=== PATIENT | female | born 1935 | race African-American/Black ===

== ENCOUNTER 2018-01-21 17:49 | Inpatient (IN) | payer OTHER, MEDICAID ==
[~2018-01-21] VITALS: Ht 165.1 cm; Wt 81.2 kg
[~2018-01-21 17:49] MED LIST: ACET-2178 PO; CARB1TAB9 PO; CLON0.2T PO; CYM20 PO; FERROUS GLUCONATE PO; GUAIFENESIN 100 MG/5 ML PO; HYDR-523 PO; HYDR100T26 PO; MELA3TAB PO; METO-396 PO; MIR25 PO; VITAMIN B1 PO; XALAO EACHEYE
[2018-01-21 18:54] LABS: BG BASE EXCESS 0.8 mmol/L (-2.0-2.0); BG CARBOXYHEMOGLOBIN 0.7 % (0.5-1.5); BG DEOXYHEMOGLOBIN 4.1 % (0.0-5.0); BG FRACTION INSPIRED OXYGEN 28; BG HCO3 ACT 26.4 mmol/L (22.0-26.0); BG METHEMOGLOBIN 0.3 % (0.0-1.5); BG OXYGEN SATURATION 95.9 % (92.0-98.5); BG OXYHEMOGLOBIN 94.9 % (94.0-97.0); BG PCO2 47.5 mmHg (35.0-45.0); BG PH 7.363 (7.350-7.450); BG PO2 90.1 mmHg (75.0-100.0); BG SAMPLE SITE RIGHT RADIAL; BG TOTAL HEMOGLOBIN 7.8 g/dL (12.0-18.0); BG VENT MODE NASAL CANNULA
[2018-01-21 19:17] LABS: BASOPHILS % 0.4 % (0.0-2.0); CHLORIDE 97 mEq/L (98-107); HEMATOCRIT. 23.7 % (36.0-48.0); HEMOGLOBIN. 7.1 g/dL (12.0-16.0); LYMPHOCYTES % 10.5 % (20.0-50.0); MEAN CORPUSCULAR HEMOGLOBIN 22.2 pg (28.0-32.0); MEAN CORPUSCULAR VOLUME 73.6 fL (81.0-99.0); MEAN PLATELET VOLUME 7.9 fl (7.4-10.4); MONOCYTES % 10.6 % (2.0-8.0); NEUTROPHILS % 76.5 % (40.0-76.0); PLATELET 488 x1000/uL (130-400); RED BLOOD CELL COUNT 3.21 mill/uL (4.2-5.4); RED CELL DISTRIBUTION WIDTH 19.8 % (11.6-14.6)
[2018-01-21 19:21] LABS: CLARITY URINE CLOUDY (CLEAR); COLOR URINE YELLOW (YELLOW); KETONES URINE NEGATIVE (NEGATIVE); LEUKOCYTE ESTERASE URINE 3+ (NEGATIVE); NITRITE URINE NEGATIVE (NEGATIVE); OCCULT BLOOD URINE TRACE (NEGATIVE); PH URINE 6.5 (4.5-8.0); PROTEIN URINE TRACE (NEGATIVE); SPECIFIC GRAVITY URINE 1.009 (1.005-1.030); UROBILINOGEN URINE 0.2 E.U./dL (0.2-1.0)
[2018-01-21 19:21] LABS: PARTIAL THROMBOPLASTIN TIME 23.6 sec (23.4-31.0); PROTHROMBIN TIME 10.2 sec (9.4-11.6)
[2018-01-21 19:23] LABS: PHOSPHORUS 4.2 mg/dL (2.5-4.9)
[2018-01-21] MEDS ORDERED: DEXTROSE 50% WATER 50ML SYRINGE IV ONE (19:45)
[2018-01-21] MEDS ORDERED: SODIUM BICARBONATE 8.4% 1 MEQ/ML 50ML SYR IV ONE (19:45)
[2018-01-21] MEDS ORDERED: SODIUM POLYSTYRENE SULFONATE 15 G/60 ML BOT PO ONE (19:45)
[2018-01-21] MEDS ORDERED: CALCIUM CHLORIDE 1GM/10ML SYR IV ONE (19:45)
[2018-01-21] MEDS ORDERED: INSULIN REGULAR (HUMULIN R) 300UNITS/3ML IV ONE (19:45)
[2018-01-21] MEDS ORDERED: CEFTRIAXONE 1 G PREMIX 50 ML IV ONE (20:30)
[2018-01-21 22:00] VITALS: BP 197/87
[2018-01-21 22:30] VITALS: BP 197/87
[2018-01-22] VITALS (10 sets, daily range): BP systolic 94–186; BP diastolic 42–82
[2018-01-22] MEDS ORDERED: DOCUSATE SODIUM 100MG CAPSULE PO PRN (01:30)
[2018-01-22] MEDS ORDERED: ONDANSETRON HCL 4MG/2ML VIAL IV PRN (01:30)
[2018-01-22] MEDS ORDERED: LEVOFLOXACIN 500MG PREMIX 100 ML IV SCH ×2 (01:30→03:00)
[2018-01-22] MEDS ORDERED: ACETAMINOPHEN 325MG TABLET PO PRN (01:30)
[2018-01-22] MEDS ORDERED: ENOXAPARIN 40MG/0.4ML SYR SUBCUT SCH (09:00)
[2018-01-22] MEDS: DEXT 5%/0.45% NACL 1000ML 1,000 ML IV SCH ×2 (09:59→14:49)
[2018-01-22] MEDS: DULOXETINE HCL 20MG DR CAPSULE PO SCH (12:00)
[2018-01-22 13:19] LABS: TOTAL IRON BINDING CAPACITY 415 ug/dL (250-450)
[2018-01-22 13:47] LABS: BASOPHILS % 0.4 % (0.0-2.0); EOSINOPHILS % 1.4 % (0.0-5.0); HEMATOCRIT. 23.8 % (36.0-48.0); HEMOGLOBIN. 7.1 g/dL (12.0-16.0); LYMPHOCYTES % 8.2 % (20.0-50.0); MEAN CORPUSCULAR HEMOGLOBIN 22.2 pg (28.0-32.0); MEAN PLATELET VOLUME 8.3 fl (7.4-10.4); MONOCYTES % 8.8 % (2.0-8.0); NEUTROPHILS % 81.2 % (40.0-76.0); PLATELET 446 x1000/uL (130-400); RED BLOOD CELL COUNT 3.21 mill/uL (4.2-5.4); RED CELL DISTRIBUTION WIDTH 19.7 % (11.6-14.6)
[2018-01-22 13:51] LABS: CHLORIDE 99 mEq/L (98-107)
[2018-01-22] MEDS ORDERED: FUROSEMIDE 20MG/2ML VIAL IVP NR (14:45)
[2018-01-22] MEDS ORDERED: SODIUM POLYSTYRENE SULFONATE 15 G/60 ML BOT PO NR (14:45)
[2018-01-22] MEDS: PRAMIPEXOLE DI-HCL 0.5MG TABLET PO SCH (16:56)
[2018-01-22] MEDS: CARBIDOPA/LEVODOPA 25/100MG TABLET PO SCH ×2 (16:56→21:57)
[2018-01-22] MEDS: ASPIRIN 81MG EC TABLET PO SCH (16:56)
[2018-01-22] MEDS: LATANOPROST 0.005% OPHTH DROPS 2.5ML EACHEYE SCH (21:54)
[2018-01-22] MEDS: HYDROCODONE/ACETAMINOPHEN 5/325MG TABLET PO PRN (21:57)
[2018-01-23] VITALS (10 sets, daily range): BP systolic 96–190; BP diastolic 46–86
[2018-01-23 00:09] LABS: HEMATOCRIT 23.6 % (36.0-48.0); HEMOGLOBIN 7.4 g/dL (12.0-16.0); MEAN CORPUSCULAR HEMOGLOBIN 23.7 pg (28.0-32.0); MEAN CORPUSCULAR VOLUME 75.2 fL (81.0-99.0); PLATELET 218 x1000/uL (130-400); RED BLOOD CELL COUNT 3.14 mill/uL (4.2-5.4); RED CELL DISTRIBUTION WIDTH 20.7 % (11.6-14.6)
[2018-01-23] MEDS: DEXT 5%/0.45% NACL 1000ML 1,000 ML IV SCH ×2 (03:58→17:29)
[2018-01-23] MEDS: LEVOFLOXACIN 250MG PREMIX 50 ML IV SCH (05:53)
[2018-01-23] MEDS: CARBIDOPA/LEVODOPA 25/100MG TABLET PO SCH ×3 (05:53→21:28)
[2018-01-23] MEDS: DULOXETINE HCL 20MG DR CAPSULE PO SCH (09:00)
[2018-01-23] MEDS: ASPIRIN 81MG EC TABLET PO SCH (09:25)
[2018-01-23] MEDS: CLONIDINE 0.1MG TABLET PO PRN ×2 (09:25→17:04)
[2018-01-23] MEDS: ENOXAPARIN 30MG/0.3ML SYR SUBCUT SCH ×2 (09:25→21:29)
[2018-01-23 14:00] LABS: CHLORIDE 100 mEq/L (98-107)
[2018-01-23] MEDS: HYDROCODONE/ACETAMINOPHEN 5/325MG TABLET PO PRN (17:03)
[2018-01-23] MEDS: PRAMIPEXOLE DI-HCL 0.5MG TABLET PO SCH (17:03)
[2018-01-23 18:17] LABS: HEMATOCRIT 30.5 % (36.0-48.0); HEMOGLOBIN 9.8 g/dL (12.0-16.0); MEAN CORPUSCULAR HEMOGLOBIN 25.2 pg (28.0-32.0); MEAN CORPUSCULAR VOLUME 78.5 fL (81.0-99.0); PLATELET 339 x1000/uL (130-400); RED BLOOD CELL COUNT 3.88 mill/uL (4.2-5.4); RED CELL DISTRIBUTION WIDTH 20.6 % (11.6-14.6)
[2018-01-23] MEDS: LATANOPROST 0.005% OPHTH DROPS 2.5ML EACHEYE SCH (21:28)
[2018-01-24] VITALS (7 sets, daily range): BP systolic 139–187; BP diastolic 63–89
[2018-01-24] MEDS: DEXT 5%/0.45% NACL 1000ML 1,000 ML IV SCH (04:44)
[2018-01-24] MEDS: LEVOFLOXACIN 250MG PREMIX 50 ML IV SCH (05:17)
[2018-01-24] MEDS: CARBIDOPA/LEVODOPA 25/100MG TABLET PO SCH ×3 (05:17→21:19)
[2018-01-24] MEDS: ENOXAPARIN 30MG/0.3ML SYR SUBCUT SCH (08:37)
[2018-01-24] MEDS: DULOXETINE HCL 20MG DR CAPSULE PO SCH (08:37)
[2018-01-24] MEDS: ASPIRIN 81MG EC TABLET PO SCH (08:37)
[2018-01-24] MEDS: HYDROCODONE/ACETAMINOPHEN 5/325MG TABLET PO PRN (08:53)
[2018-01-24] MEDS: CLONIDINE 0.1MG TABLET PO PRN (11:45)
[2018-01-24] MEDS: AMPICILLIN 500 MG in SODIUM CHLORIDE 0.9% 50 ML IV SCH (16:22)
[2018-01-24] MEDS: LORAZEPAM 2MG/ML CPJ IV PRN (16:31)
[2018-01-24] MEDS: PRAMIPEXOLE DI-HCL 0.5MG TABLET PO SCH (17:08)
[2018-01-24] MEDS: LATANOPROST 0.005% OPHTH DROPS 2.5ML EACHEYE SCH (21:18)
[2018-01-25] VITALS (8 sets, daily range): BP systolic 94–209; BP diastolic 48–81
[2018-01-25] MEDS: AMPICILLIN 500 MG in SODIUM CHLORIDE 0.9% 50 ML IV SCH ×2 (00:38→08:40)
[2018-01-25] MEDS: CLONIDINE 0.1MG TABLET PO PRN (05:15)
[2018-01-25] MEDS: CARBIDOPA/LEVODOPA 25/100MG TABLET PO SCH ×2 (05:16→14:54)
[2018-01-25] MEDS: HYDROCODONE/ACETAMINOPHEN 5/325MG TABLET PO PRN (05:16)
[2018-01-25] MEDS: ASPIRIN 81MG EC TABLET PO SCH (08:41)
[2018-01-25] MEDS: DULOXETINE HCL 20MG DR CAPSULE PO SCH (08:41)
[2018-01-25] MEDS: DEXT 5%/0.45% NACL 1000ML 1,000 ML IV SCH (08:43)
[2018-01-25] MEDS ORDERED: ENOXAPARIN 40MG/0.4ML SYR SUBCUT SCH (09:00)
[2018-01-25] MEDS ORDERED: AMLODIPINE 10MG TABLET PO SCH (11:15)
[2018-01-25] MEDS: LORAZEPAM 2MG/ML CPJ IV PRN (11:35)
== END 2018-01-25 17:45 | DRG 683 ==
LOC: ER 18:30 → EDBEDREQ 18:37 → 6WST 19:55 → EDBEDREQTM 20:05 → EDBEDREQ 20:05 → ENRESERV 20:58
PROVIDERS: ADMIT Hospitalist; ATTEND Hospitalist
PROC: 30233N1 Transfusion of Nonautologous Red Blood Cells into Peripheral Vein, Percutaneous Approach (ICD-10-PCS; principal; 2018-01-22)
DX: N17.9 Acute kidney failure, unspecified (principal); N39.0 Urinary tract infection, site not specified; E87.5 Hyperkalemia; Z66 Do not resuscitate; D50.9 Iron deficiency anemia, unspecified; G20 Parkinson's disease; B96.89 Other specified bacterial agents as the cause of diseases classified elsewhere; G40.909 Epilepsy, unspecified, not intractable, without status epilepticus; I11.9 Hypertensive heart disease without heart failure; F03.90 Unspecified dementia, unspecified severity, without behavioral disturbance, psychotic disturbance, mood disturbance, and anxiety; E87.6 Hypokalemia; Z79.1 Long term (current) use of non-steroidal anti-inflammatories (NSAID); Z79.899 Other long term (current) drug therapy
CPT/HCPCS: 36415; 36430; 36600; 51702; 71045; 80048; 80053; 81003; 82375; 82805; 82962; 83540; 83550; 83690; 83735; 84100; 84443; 84484; 85025; 85027; 85044; 85610; 85730; 86850; 86900; 86920; 87077; 87086; 87186; 92610; 93005; 93970; 96365; 96375; 99291; A6261; J0290; J0696; J1650; J1815; J1940; J1956; J2060; J3490; P9016

== ENCOUNTER 2018-02-19 14:39 | Inpatient (IN) | payer MEDICARE, MEDICAID ==
[~2018-02-19] VITALS: Ht 147.3 cm; Wt 82.1 kg
[~2018-02-19 14:39] MED LIST changes: +CARB1TAB9 GT; -CARB1TAB9 PO; +CLON0.2T GT; -CLON0.2T PO; +GUAIFENESIN 100 MG/5 ML GT; -GUAIFENESIN 100 MG/5 ML PO; +HYDR-523 GT; -HYDR-523 PO; +MELA3TAB GT; -MELA3TAB PO; +METO-396 GT; -METO-396 PO; +MIR25 GT; -MIR25 PO; +VITAMIN B1 GT; -VITAMIN B1 PO
[2018-02-19] MEDS ORDERED: ALBUTEROL (0.083%) 2.5MG/3ML NEB HHN STA (15:23)
[2018-02-19] MEDS ORDERED: IPRATROPIUM BROMIDE (0.02%) 0.5MG/2.5ML NEB HHN STA (15:23)
[2018-02-19] MEDS ORDERED: METHYLPREDNISOLONE SOD SUCC 125 MG/2 ML VIAL IV STA (15:23)
[2018-02-19 16:04] LABS: HEMATOCRIT. 26.3 % (36.0-48.0); HEMOGLOBIN. 8.3 g/dL (12.0-16.0); MEAN CORPUSCULAR HEMOGLOBIN 24.8 pg (28.0-32.0); MEAN CORPUSCULAR VOLUME 78.6 fL (81.0-99.0); MEAN PLATELET VOLUME 8.4 fl (7.4-10.4); PLATELET 316 x1000/uL (130-400); RED BLOOD CELL COUNT 3.34 mill/uL (4.2-5.4); RED CELL DISTRIBUTION WIDTH 22.6 % (11.6-14.6)
[2018-02-19 16:14] LABS: CHLORIDE 91 mEq/L (98-107)
[2018-02-19 16:30] LABS: PLATELET ESTIMATE NORMAL
[2018-02-19 16:30] LABS: CLARITY URINE CLOUDY (CLEAR); COLOR URINE YELLOW (YELLOW); KETONES URINE NEGATIVE (NEGATIVE); LEUKOCYTE ESTERASE URINE 2+ (NEGATIVE); NITRITE URINE NEGATIVE (NEGATIVE); OCCULT BLOOD URINE NEGATIVE (NEGATIVE); PH URINE 5.5 (4.5-8.0); PROTEIN URINE TRACE (NEGATIVE); SPECIFIC GRAVITY URINE 1.013 (1.005-1.030); UROBILINOGEN URINE 0.2 E.U./dL (0.2-1.0)
[2018-02-19] MEDS ORDERED: AZITHROMYCIN 500 MG in DEXT 5% WATER 250 ML IV STA (17:04)
[2018-02-19] MEDS ORDERED: CEFTRIAXONE 1 G PREMIX 50 ML IV ONE (17:15)
[2018-02-19] MEDS ORDERED: SODIUM CHLORIDE 0.9% 500 ML IV ONE (17:30)
[2018-02-19] MEDS ORDERED: SODIUM CHLORIDE 0.9% 1000ML BAG (SEPSIS BOLUS) IV ONE (17:30)
[2018-02-19] MEDS ORDERED: DOCUSATE SODIUM 100MG CAPSULE PO PRN (18:00)
[2018-02-19] MEDS ORDERED: GUAIFENESIN 200MG/10ML SUGAR FREE UDC PO PRN (18:00)
[2018-02-19] MEDS ORDERED: NA PHOS,M-B/NA PHOS,DI-BA ENEMA 118ML PR PRN (18:00)
[2018-02-19] MEDS ORDERED: MAGNESIUM/ALUMINUM HYDROXIDE/SIMETHICONE 30ML UDC PO PRN (18:00)
[2018-02-19] MEDS ORDERED: IPRATROPIUM/ALBUTEROL 0.5-3(2.5)MG/3ML NEB INH PRN (18:00)
[2018-02-19] MEDS ORDERED: VANCOMYCIN 1 G PREMIX 200 ML IV SCH (18:00)
[2018-02-19] MEDS ORDERED: ACETAMINOPHEN 325MG TABLET PO PRN (18:00)
[2018-02-19] MEDS ORDERED: ONDANSETRON 4MG ODT PO PRN (18:00)
[2018-02-19] MEDS ORDERED: DIPHENHYDRAMINE 50MG/ML VIAL IV PRN (18:00)
[2018-02-19 21:30] VITALS: BP 132/42
[2018-02-19] MEDS ORDERED: DEXTROSE 50% WATER 50ML SYRINGE IV PRN (21:30)
[2018-02-19 21:40] VITALS: BP 132/42
[2018-02-19 21:58] LABS: T4 FREE 1.09 ng/dL (0.76-1.46)
[2018-02-19] MEDS ORDERED: SODIUM POLYSTYRENE SULFONATE 15 G/60 ML BOT PO NR (22:00)
[2018-02-19 22:14] LABS: FOLIC ACID (FOLATE) SERUM >20 ng/mL ng/mL (>5.38)
[2018-02-19 22:25] LABS: VITAMIN B12 SERUM >2000 pg/mL pg/mL (211-911)
[2018-02-19] MEDS: DEXT 5%/LACTATED RINGERS 1,000 ML IV SCH (23:12)
[2018-02-19] MEDS: GUAIFENESIN/DM 600MG/30MG ER TAB 12HR PO SCH (23:13)
[2018-02-19] MEDS: CARBIDOPA/LEVODOPA 25/100MG TABLET PO SCH (23:13)
[2018-02-19] MEDS: ASCORBIC ACID 500 MG TABLET PO SCH (23:13)
[2018-02-19 23:15] LABS: CREATINE KINASE 227 IU/L (26-192)
[2018-02-19 23:16] LABS: CREATINE KINASE MB FRACTION 19.2 ng/mL (0.5-3.6)
[2018-02-19] MEDS: PIPERACILLIN/TAZ 3.375G PREMIX 50 ML IV SCH (23:36)
[2018-02-19] MEDS: METHYLPREDNISOLONE SOD SUCC 125 MG/2 ML VIAL IV SCH (23:40)
[2018-02-20 00:01] VITALS: BP 149/57
[2018-02-20] MEDS ORDERED: VANCOMYCIN 1250MG in DEXTROSE 5% WATER 250ML IV NR (01:00)
[2018-02-20] MEDS: IPRATROPIUM/ALBUTEROL 0.5-3(2.5)MG/3ML NEB HHN SCH ×5 (01:14→20:46)
[2018-02-20] MEDS ORDERED: SCOP1PAT10 TP (02:11)
[2018-02-20] MEDS ORDERED: KEPPSOL GT (02:11)
[2018-02-20] MEDS ORDERED: FERR325T6 GT (02:11)
[2018-02-20] MEDS ORDERED: DONE10TA43 GT (02:11)
[2018-02-20] MEDS ORDERED: OMEP40CA34 GT (02:11)
[2018-02-20] MEDS ORDERED: DOCU50LI25 GT (02:11)
[2018-02-20] MEDS ORDERED: FURO-151 GT (02:11)
[2018-02-20] MEDS ORDERED: ASPI-1159 GT (02:11)
[2018-02-20] MEDS ORDERED: LISI-604 GT (02:11)
[2018-02-20 04:00] VITALS: BP 140/50
[2018-02-20] MEDS: CARBIDOPA/LEVODOPA 25/100MG TABLET PO SCH ×3 (05:19→21:25)
[2018-02-20 07:31] VITALS: BP 143/54
[2018-02-20] MEDS: BLOOD SUGAR DIAGNOSTIC STRIP TEST SCH ×4 (07:37→21:00)
[2018-02-20] MEDS: INSULIN LISPRO 100 UNITS/ML SUBCUT SCH ×4 (07:38→21:00)
[2018-02-20] MEDS: PIPERACILLIN/TAZ 3.375G PREMIX 50 ML IV SCH ×3 (10:30→21:25)
[2018-02-20] MEDS: METHYLPREDNISOLONE SOD SUCC 125 MG/2 ML VIAL IV SCH ×2 (10:30→17:30)
[2018-02-20] MEDS: DEXT 5%/LACTATED RINGERS 1,000 ML IV SCH (10:30)
[2018-02-20] MEDS: GUAIFENESIN/DM 600MG/30MG ER TAB 12HR PO SCH ×2 (10:30→21:25)
[2018-02-20] MEDS: ZINC SULFATE 220 MG ( 50 ) CAPSULE PO SCH (10:30)
[2018-02-20] MEDS: FAMOTIDINE 20MG TABLET PO SCH (10:31)
[2018-02-20] MEDS: ASPIRIN 325MG EC TABLET PO SCH (10:31)
[2018-02-20] MEDS: ENOXAPARIN 40MG/0.4ML SYR SUBCUT SCH (10:31)
[2018-02-20] MEDS: ASCORBIC ACID 500 MG TABLET PO SCH (10:31)
[2018-02-20 12:00] VITALS: BP 160/51
[2018-02-20] MEDS: VANCOMYCIN 750 MG PREMIX 150 ML IV SCH (13:25)
[2018-02-20 16:00] VITALS: BP 122/56
[2018-02-20 17:28] LABS: MEAN CORPUSCULAR HEMOGLOBIN 24.8 pg (28.0-32.0); MEAN CORPUSCULAR VOLUME 80.2 fL (81.0-99.0); MEAN PLATELET VOLUME 8.2 fl (7.4-10.4); PLATELET 244 x1000/uL (130-400); RED BLOOD CELL COUNT 2.78 mill/uL (4.2-5.4); RED CELL DISTRIBUTION WIDTH 22.1 % (11.6-14.6)
[2018-02-20 17:39] LABS: CHLORIDE 97 mEq/L (98-107)
[2018-02-20 17:48] LABS: HEMOGLOBIN. 6.9 g/dL (12.0-16.0)
[2018-02-20 17:49] LABS: HEMATOCRIT. 22.3 % (36.0-48.0)
[2018-02-20 17:50] LABS: CREATINE KINASE 218 IU/L (26-192)
[2018-02-20 20:00] VITALS: BP 171/63
[2018-02-20 21:32] LABS: ATYPICAL LYMPHOCYTES 1; PLATELET ESTIMATE NORMAL
[2018-02-20] MEDS ORDERED: ASCORBIC ACID 250 MG TABLET PO SCH (23:00)
[2018-02-21] VITALS (12 sets, daily range): BP systolic 125–181; BP diastolic 46–75
[2018-02-21] MEDS: IPRATROPIUM/ALBUTEROL 0.5-3(2.5)MG/3ML NEB HHN SCH ×6 (00:34→19:59)
[2018-02-21] MEDS: METHYLPREDNISOLONE SOD SUCC 125 MG/2 ML VIAL IV SCH ×4 (00:43→23:39)
[2018-02-21] MEDS: DEXT 5%/LACTATED RINGERS 1,000 ML IV SCH ×2 (00:45→14:00)
[2018-02-21] MEDS: PIPERACILLIN/TAZ 3.375G PREMIX 50 ML IV SCH ×3 (05:22→21:20)
[2018-02-21] MEDS: VANCOMYCIN 750 MG PREMIX 150 ML IV SCH ×2 (05:22→23:39)
[2018-02-21] MEDS: CARBIDOPA/LEVODOPA 25/100MG TABLET PO SCH ×3 (05:22→21:19)
[2018-02-21] MEDS: BLOOD SUGAR DIAGNOSTIC STRIP TEST SCH ×4 (07:20→21:20)
[2018-02-21] MEDS: INSULIN LISPRO 100 UNITS/ML SUBCUT SCH ×4 (07:50→21:00)
[2018-02-21] MEDS: ENOXAPARIN 40MG/0.4ML SYR SUBCUT SCH (09:00)
[2018-02-21] MEDS ORDERED: FUROSEMIDE 20MG/2ML VIAL IVP NR ×2 (09:15→18:15)
[2018-02-21] MEDS ORDERED: ACETAMINOPHEN 650MG/20.3ML UDC PO NR (09:15)
[2018-02-21] MEDS ORDERED: DIPHENHYDRAMINE 12.5MG/5ML UDC PO NR (09:15)
[2018-02-21] MEDS: ZINC SULFATE 220 MG ( 50 ) CAPSULE PO SCH (09:44)
[2018-02-21] MEDS: FAMOTIDINE 20MG TABLET PO SCH (09:44)
[2018-02-21] MEDS: GUAIFENESIN/DM 600MG/30MG ER TAB 12HR PO SCH ×2 (09:45→21:19)
[2018-02-21] MEDS: ASPIRIN 325MG EC TABLET PO SCH (09:45)
[2018-02-21] MEDS: ASCORBIC ACID 500 MG TABLET PO SCH ×2 (12:14→21:19)
[2018-02-22] VITALS (7 sets, daily range): BP systolic 139–187; BP diastolic 48–80
[2018-02-22] MEDS: IPRATROPIUM/ALBUTEROL 0.5-3(2.5)MG/3ML NEB HHN SCH ×6 (00:24→20:43)
[2018-02-22] MEDS: DEXT 5%/LACTATED RINGERS 1,000 ML IV SCH (02:07)
[2018-02-22] MEDS: CARBIDOPA/LEVODOPA 25/100MG TABLET PO SCH ×3 (05:14→21:05)
[2018-02-22] MEDS: PIPERACILLIN/TAZ 3.375G PREMIX 50 ML IV SCH (05:14)
[2018-02-22] MEDS: CLONIDINE 0.1MG TABLET PO PRN ×3 (05:15→21:02)
[2018-02-22 05:57] LABS: CHLORIDE 102 mEq/L (98-107)
[2018-02-22 06:14] LABS: HEMATOCRIT. 30.1 % (36.0-48.0); HEMOGLOBIN. 9.5 g/dL (12.0-16.0); MEAN CORPUSCULAR HEMOGLOBIN 25.3 pg (28.0-32.0); MEAN CORPUSCULAR VOLUME 80.6 fL (81.0-99.0); PLATELET 267 x1000/uL (130-400); RED BLOOD CELL COUNT 3.74 mill/uL (4.2-5.4); RED CELL DISTRIBUTION WIDTH 20.3 % (11.6-14.6)
[2018-02-22] MEDS: BLOOD SUGAR DIAGNOSTIC STRIP TEST SCH ×4 (06:54→21:25)
[2018-02-22] MEDS: INSULIN LISPRO 100 UNITS/ML SUBCUT SCH ×4 (07:50→21:03)
[2018-02-22] MEDS: ENOXAPARIN 40MG/0.4ML SYR SUBCUT SCH (08:12)
[2018-02-22] MEDS: METHYLPREDNISOLONE SOD SUCC 125 MG/2 ML VIAL IV SCH ×2 (08:12→16:14)
[2018-02-22] MEDS: ZINC SULFATE 220 MG ( 50 ) CAPSULE PO SCH (08:13)
[2018-02-22] MEDS: GUAIFENESIN/DM 600MG/30MG ER TAB 12HR PO SCH ×2 (08:13→21:02)
[2018-02-22] MEDS: FAMOTIDINE 20MG TABLET PO SCH (08:13)
[2018-02-22] MEDS: ASCORBIC ACID 500 MG TABLET PO SCH ×2 (08:13→21:02)
[2018-02-22] MEDS: ASPIRIN 325MG EC TABLET PO SCH (08:13)
[2018-02-22] MEDS ORDERED: MEROPENEM 1,000 MG in SODIUM CHLORIDE 0.9% 100 ML IV SCH (11:00)
[2018-02-22] MEDS: METOCLOPRAMIDE HCL 10MG/2ML VIAL IV SCH ×2 (11:50→18:05)
[2018-02-22 13:44] LABS: PLATELET ESTIMATE NORMAL
[2018-02-22] MEDS: AMLODIPINE 10MG TABLET PO SCH (16:14)
[2018-02-22] MEDS: MEROPENEM 500MG in NORMAL SALINE 50ML IV SCH (21:02)
[2018-02-23] VITALS (7 sets, daily range): BP systolic 159–179; BP diastolic 66–89
[2018-02-23] MEDS: METHYLPREDNISOLONE SOD SUCC 125 MG/2 ML VIAL IV SCH ×3 (00:16→23:29)
[2018-02-23] MEDS: METOCLOPRAMIDE HCL 10MG/2ML VIAL IV SCH ×5 (00:16→23:29)
[2018-02-23] MEDS: IPRATROPIUM/ALBUTEROL 0.5-3(2.5)MG/3ML NEB HHN SCH ×5 (00:25→17:50)
[2018-02-23] MEDS: CARBIDOPA/LEVODOPA 25/100MG TABLET PO SCH ×3 (05:14→22:44)
[2018-02-23] MEDS: BLOOD SUGAR DIAGNOSTIC STRIP TEST SCH ×3 (07:00→21:00)
[2018-02-23] MEDS: ASPIRIN 325MG EC TABLET PO SCH (08:32)
[2018-02-23] MEDS: AMLODIPINE 10MG TABLET PO SCH (08:32)
[2018-02-23] MEDS: FAMOTIDINE 20MG TABLET PO SCH (08:32)
[2018-02-23] MEDS: GUAIFENESIN/DM 600MG/30MG ER TAB 12HR PO SCH ×2 (08:32→22:44)
[2018-02-23] MEDS: ASCORBIC ACID 500 MG TABLET PO SCH ×2 (08:33→22:44)
[2018-02-23] MEDS: MEROPENEM 500MG in NORMAL SALINE 50ML IV SCH ×2 (08:35→23:20)
[2018-02-23] MEDS: ENOXAPARIN 40MG/0.4ML SYR SUBCUT SCH (08:35)
[2018-02-23] MEDS: ZINC SULFATE 220 MG ( 50 ) CAPSULE PO SCH (13:29)
[2018-02-23] MEDS: INSULIN LISPRO 100 UNITS/ML SUBCUT SCH ×3 (13:56→21:00)
[2018-02-23] MEDS: CLONIDINE 0.1MG TABLET PO PRN (20:36)
[2018-02-23] MEDS: NITROGLYCERIN 0.4MG/HR PATCH TOP SCH (22:22)
[2018-02-24] VITALS: BP 190/89
[2018-02-24] MEDS: CLONIDINE 0.1MG TABLET PO PRN (03:39)
[2018-02-24 04:00] VITALS: BP 196/89
[2018-02-24] MEDS: CARBIDOPA/LEVODOPA 25/100MG TABLET PO SCH ×2 (06:07→13:47)
[2018-02-24] MEDS: METOCLOPRAMIDE HCL 10MG/2ML VIAL IV SCH ×2 (06:07→13:48)
[2018-02-24] MEDS: BLOOD SUGAR DIAGNOSTIC STRIP TEST SCH ×2 (06:11→12:20)
[2018-02-24 07:47] VITALS: BP 170/87
[2018-02-24] MEDS: INSULIN LISPRO 100 UNITS/ML SUBCUT SCH ×2 (07:50→12:50)
[2018-02-24] MEDS ORDERED: LISINOPRIL 20MG TABLET PO SCH (09:00)
[2018-02-24] MEDS: MEROPENEM 500MG in NORMAL SALINE 50ML IV SCH (09:00)
[2018-02-24] MEDS: NITROGLYCERIN 0.4MG/HR PATCH TOP SCH (09:00)
[2018-02-24] MEDS ORDERED: METOPROLOL TARTRATE 25MG TABLET PO SCH (09:00)
[2018-02-24] MEDS: ZINC SULFATE 220 MG ( 50 ) CAPSULE PO SCH (09:01)
[2018-02-24] MEDS: ASCORBIC ACID 500 MG TABLET PO SCH (09:01)
[2018-02-24] MEDS: ENOXAPARIN 40MG/0.4ML SYR SUBCUT SCH (09:01)
[2018-02-24] MEDS: GUAIFENESIN/DM 600MG/30MG ER TAB 12HR PO SCH (09:01)
[2018-02-24] MEDS: AMLODIPINE 10MG TABLET PO SCH (09:02)
[2018-02-24] MEDS: FAMOTIDINE 20MG TABLET PO SCH (09:02)
[2018-02-24] MEDS: ASPIRIN 325MG EC TABLET PO SCH (09:02)
[2018-02-24] MEDS ORDERED: LORAZEPAM 2MG/ML CPJ IV NR (10:30)
[2018-02-24] MEDS ORDERED: CLONIDINE 0.2MG TABLET PO PRN (12:00)
== END 2018-02-24 15:38 | DRG 871 ==
LOC: ER 14:39 → 6WST 17:42 → EDBEDREQ 17:45 → SUPCPDRO 17:59 → ENRESERV 18:01
PROVIDERS: ADMIT Internal Medicine; ATTEND Internal Medicine
PROC: 30233N1 Transfusion of Nonautologous Red Blood Cells into Peripheral Vein, Percutaneous Approach (ICD-10-PCS; principal; 2018-02-21)
DX: A41.51 Sepsis due to Escherichia coli [E. coli] (principal); J18.9 Pneumonia, unspecified organism; J96.01 Acute respiratory failure with hypoxia; E87.1 Hypo-osmolality and hyponatremia; J44.1 Chronic obstructive pulmonary disease with (acute) exacerbation; N39.0 Urinary tract infection, site not specified; J44.0 Chronic obstructive pulmonary disease with (acute) lower respiratory infection; E11.40 Type 2 diabetes mellitus with diabetic neuropathy, unspecified; Z66 Do not resuscitate; E87.5 Hyperkalemia; R79.89 Other specified abnormal findings of blood chemistry; L90.5 Scar conditions and fibrosis of skin; D63.8 Anemia in other chronic diseases classified elsewhere; E66.9 Obesity, unspecified; F03.90 Unspecified dementia, unspecified severity, without behavioral disturbance, psychotic disturbance, mood disturbance, and anxiety; G20 Parkinson's disease; H40.9 Unspecified glaucoma; I10 Essential (primary) hypertension; K21.9 Gastro-esophageal reflux disease without esophagitis; L30.4 Erythema intertrigo; R65.20 Severe sepsis without septic shock; Y95 Nosocomial condition; Z68.37 Body mass index [BMI] 37.0-37.9, adult; Z79.82 Long term (current) use of aspirin; Z79.899 Other long term (current) drug therapy; Z79.84 Long term (current) use of oral hypoglycemic drugs
CPT/HCPCS: 36415; 70450; 71045; 80048; 80053; 80061; 80202; 81003; 82550; 82553; 82607; 82746; 82962; 83036; 83540; 83550; 83605; 83880; 84134; 84439; 84443; 84484; 85025; 85610; 86850; 86900; 86920; 87040; 87077; 87086; 87186; 93005; 93306; 93970; 94640; 94644; 96365; 96368; 96375; 99291; A6261; C1893; J0456; J0696; J1650; J1815; J1940; J2060; J2185; J2543; J2765; J2930; J3370; J7030; J7040; J7050; J7060; J7611; J7620; P9016; Q0163; A4315